=== PATIENT | male | born 1985 | race Caucasian/White ===

== ENCOUNTER 2023-02-23 13:24 | Emergency (ER) | payer OTHER ==
[~2023-02-23] VITALS: Ht 175.3 cm; Wt 98.2 kg
[2023-02-23] MEDS ORDERED: BACTRIM DS TAB1 EACH PO (15:19)
[2023-02-23 15:30] VITALS: BP 120/75
== END 2023-02-23 15:35 | disposition home or self-care (01) ==
LOC: ED 13:24
DX: L02.31 Cutaneous abscess of buttock (principal)
CPT/HCPCS: 99282; A9270